=== PATIENT | female | born 1960 | race Caucasian/White ===

== ENCOUNTER → 2017-02-18 | Outpatient (CLI) | payer SELFPAY ==
--- NOTE | 2017-02-18 13:18 | CT ---
HISTORY: Screening, family history, dyspnea Cardiac calcium scoring. Technique: Multiple axial images of the chest were obtained on a [address] from the aortic arch to the base of the heart with noncontrast prospective gating. AEC was utilized. Findings: A total calcium score of 339 is observed. The score results in moderate likelihood of coronary even ts given the age and sex matched cohort analysis. The patient is between the 90 and 100 percentile for age and sex. Mild Coronary artery disease is highly likely with significant narrowings possible. The patient has undergone previous gastric banding. Thoracic spondylosis is noted. There is mild aleshia trilobular emphysema. IMPRESSION: At least moderate calcified atherosclerotic plaque. Reported By:
== END ==
LOC: RAD 09:59
PROVIDERS: ATTEND Nurse Practitioner
DX: Z13.6 Encounter for screening for cardiovascular disorders (principal)

== ENCOUNTER → 2017-02-26 | Outpatient (CLI) | payer BC | LOC: RAD 09:48 | PROVIDERS: ATTEND Internal Medicine | DX: C64.1 Malignant neoplasm of right kidney, except renal pelvis (principal) ==

== ENCOUNTER → 2017-03-01 | Outpatient (CLI) | payer BC ==
[~2017-03-01] MED LIST: NS 100 ML IV 100 ML IV ONE
[2017-03-01 10:14] LABS: CREATININE 0.88 mg/dL (0.55-1.02)
--- NOTE | 2017-03-01 15:32 | CT ---
CT OF THE ABDOMEN AND PELVIS WITH CONTRAST HISTORY: Malignant neoplasm of right kidney. Abdominal aortic aneurysm check. Comparison: 02/20/2015 Technique: Multiple axial images of the abdomen and pelvis were obtained from the lung bases to the pubic symph ysis follow the administration of IV contrast as well as oral contrast. Dose reduction techniques i ncluding Automated Exposure Control (AEC) and adjustment of mA and kV were utlized. Findings: The heart is normal in size. There is no pericardial effusion. Lung bases are clear without focal co nsolidation, pleural effusion or pneumothorax. Liver and spleen are normal in size, enhancement characteristics and contour. No focal lesions. The portal vein is patent. No ductal dilitation. Gallbladder is present. No calcified gallstones or gall bladder wall thickening. The pancreas is unremarkable. Adrenal glands are normal. Status post partia l right nephrectomy involving the lower pole the right kidney. No definite renal masses. No abdomin al aortic aneurysm. No bowel obstruction or inflammation. No abnormal appearing mesenteric or retroperitoneal lymph nod es. No free fluid or fluid collections. The bladder is normal in appearance. Status post hysterectomy. No free fluid or abnormal pelvic lymp h nodes. No aggressive osseous lesions. IMPRESSION: 1. No abdominal aortic aneurysm. 2. Status post partial right nephrectomy without evidence of residual or metastatic disease. Reported By:
== END ==
LOC: RAD 09:27
PROVIDERS: ATTEND Nurse Practitioner
DX: C64.1 Malignant neoplasm of right kidney, except renal pelvis (principal)
CPT/HCPCS: 36415; 74177; 82565; 84520; A4222

== ENCOUNTER → 2017-05-12 | Outpatient (CLI) | payer BC | LOC: RAD 15:06 | PROVIDERS: ATTEND Nurse Practitioner | DX: Z12.31 Encounter for screening mammogram for malignant neoplasm of breast (principal) | CPT/HCPCS: 77067 ==